=== PATIENT | male | born 1995 | race Caucasian/White ===

== ENCOUNTER 2017-05-18 15:38 | Emergency (ER) | payer BC, OTHER, SELFPAY ==
[2017-05-18] MEDS ORDERED: TORAdol 30 mg Injection IM ONE (16:27)
--- NOTE | 2017-05-18 16:31 | ERPHSYRPT ---
- History of Present Illness Time Seen by Provider: 05/18/17 16:24 Source: patient Exam Limitations: no limitations Patient Subjective Stated Complaint: pt here for right elbow pain since last night, pt states he slipped and fell and tried to catch self with right arm Triage Nursing Assessment: pt walked in, alert, resp easy, skin w/d pink. pt co pain to right elbow, strong radial pulse, has limtited movedment of arm Physician History: 21-year-old white male arrives with complaint of pain in his right elbow since last night. According to patient patient fell last night he is having pain in his right elbow worse with movement. Past medical history is negative. Past surgical history includes right hand surgery. Social history includes tobacco or alcohol use. Occurred: yesterday Method of Injury: fell Quality: constant Severity of Pain-Max: moderate Severity of Pain-Current: moderate Extremities Pain Location: elbow: right Modifying Factors: Improves With: movement Associated Symptoms: none Allergies/Adverse Reactions: No Known Drug Allergies Allergy (Verified 05/18/17 16:05) Home Medications: No Home Meds [No Home Meds] 1 [facility] 10/08/15 [History] Hx Tetanus, Diphtheria Vaccination/Date Given: Yes Hx Influenza Vaccination/Date Given: No Hx Pneumococcal Vaccination/Date Given: No Immunizations Up to Date: Yes - Review of Systems Constitutional: No Fever, No Chills Eyes: No Symptoms Ears, Nose, & Throat: No Symptoms Respiratory: No Cough, No Dyspnea Cardiac: No Chest Pain, No Edema, No Syncope Abdominal/Gastrointestinal: No Abdominal Pain, No Nausea, No Vomiting, No Diarrhea Genitourinary Symptoms: No Dysuria Musculoskeletal: Other (right elbow pain) Skin: No Rash Neurological: No Dizziness, No Focal Weakness, No Sensory Changes Psychological: No Symptoms Endocrine: No Symptoms All Other Systems: Reviewed and Negative - Past Medical History Pertinent Past Medical History: No - Past Surgical History Past Surgical History: Yes Musculoskeletal: Orthopedic Surgery Other Surgical History: right hand surgery - Social History Smoking Status: Current every day smoker How long have you smoked: yrs Exposure to second hand smoke: Yes Drug Use: marijuana, methamphetamines Patient Lives Alone: No - Nursing Vital Signs Nursing Vital Signs: Initial Vital Signs Temperature 98.4 F 05/18/17 15:58 Pulse Rate 75 05/18/17 15:58 Respiratory Rate 16 05/18/17 15:58 Blood Pressure 120/58 05/18/17 15:58 O2 Sat by Pulse Oximetry 96 05/18/17 15:58 Pain Scale Pain Intensity 7 - Physical Exam General Appearance: mild distress Eyes, Ears, Nose, Throat Exam: moist mucous membranes Neck Exam: non-tender, supple Cardiovascular/Respiratory Exam: chest non-tender, normal breath sounds, regular rate/rhythm, no respiratory distress Abdominal Exam: non-tender, No guarding Back Exam: normal inspection, No vertebral tenderness Shoulder Exam: normal inspection, non-tender, no evidence of injury, normal ROM Elbow/Forearm Exam: No normal inspection (pain with movement and palpation right posterior elbow, right radial ulnar pulses are intact 2/4 , good capillary refill right fingers full range of motion right fingers right wrist nontender) Wrist Exam: normal inspection, non-tender, no evidence of injury, normal ROM Hand Exam: normal inspection, non-tender, no evidence of injury, normal ROM Neuro/Tendon Exam: normal sensation, normal motor functions Mental Status Exam: alert, oriented x 3, cooperative Skin Exam: normal color, warm, dry SpO2 Interpretation: normal (96%) SpO2: 96 Oxygen Delivery: Room Air - Course Nursing assessment & vital signs reviewed: Yes - Radiology Exams Right Elbow X-ray Interpretation: Interpreted by me, Negative, No Fracture, No Subluxation Ordered Tests: Active Orders 24 hr Category Date Time Status Sling Application STAT Care 05/18/17 17:02 Active ELBOW (MINIMUM 3 VIEWS) Stat Exams 05/18/17 16:27 Taken Medication Summary Discontinued Medications Generic Name Dose Route Start Last Admin Trade Name Ariane PRN Reason Stop Dose Admin Ketorolac Tromethamine 60 mg 05/18/17 16:27 05/18/17 16:48 Toradol 30 Mg Injection IM 05/18/17 16:28 60 mg STAT ONE Administration Ketorolac Tromethamine Confirm 05/18/17 16:47 Toradol 30 Mg Injection Administered 05/18/17 16:48 Dose 60 mg .ROUTE .STK-MED ONE - Progress Progress: improved Progress Note: 05/18/17 17:03 21-year-old white male arrives with complaint of pain in right elbow worse with movement and palpation symptoms since last night. Patient states he fell onto an outstretched hand he has pain in the right elbow. X-ray of the right elbow negative fracture negative dislocation. We'll go ahead and place a sling on the patient's right arm. 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 - Departure Time of Disposition: 17:03 Departure Disposition: Home Clinical Impression: Right elbow pain Strain of right elbow Qualifiers: Encounter type: initial encounter Qualified Code(s): S56.911A - Strain of unspecified muscles, fascia and tendons at forearm level, right arm, initial encounter Condition: Fair Critical Care Time: No Referrals: LATOSHA NIXON MD [Primary Care Provider] - Additional Instructions: . Return home. Ice and elevate your right elbow 24-48 hours. Use sling right arm 48-72 hours, longer if pain persist. Milton 5/325 #12 one orally every 4-6 hours as needed for pain. Advil 2-3 tablets orally every 6 hours with food as needed for pain for up to 5 days. Follow-up with your family doctor if symptoms are worse, nowhere 48 hours, or persist longer than one week. Return for acute distress or for severe symptoms. Prescriptions: Hydrocodone/Acetaminophen [Milton 5-325 Tablet] 1 tab PO Q4-6HPRN PRN #12 tablet MDD 6 tablets PRN Reason: Pain
[2017-05-18] MEDS ORDERED: TORAdol 30 mg Injection ONE (16:47)
[2017-05-18 17:15] VITALS: BP 128/78; PULSE 78; O2SAT 98
--- NOTE | 2017-05-18 20:19 | XRAY ---
Indication: Pain following fall. Comparison: None 3 views of the right elbow obtained. No bony, articular, or soft tissue abnormalities.
== END 2017-05-18 17:15 | disposition home or self-care (01) ==
LOC: ED 15:38
DX: S56.911A Strain of unspecified muscles, fascia and tendons at forearm level, right arm, initial encounter (principal); M25.521 Pain in right elbow; W19.XXXA Unspecified fall, initial encounter
CPT/HCPCS: 73080; 96372; 99284; J1885

== ENCOUNTER 2018-12-20 14:14 | Emergency (ER) | payer BC ==
--- NOTE | 2018-12-20 15:26 | ERPHSYRPT ---
- History of Present Illness Source: patient Exam Limitations: no limitations Patient Subjective Stated Complaint: states "rolled" right ankle last night and today in having pain and swelling to ankle. Triage Nursing Assessment: ambulated to room per self. skin w/d, color normal. slight swelling noted to right ankle, good pedal pulse and good cap refill. Physician History: Pt is 23 y/o man that had his R ankle "rolled" under him, and developed pain. Pt is able to ambulate and his ROM is intact. He does have pain with palpation on the lateral calcaneal area. Method of Injury: twisted Occurred: just prior to arrival Quality: intermittent, aching Severity of Pain-Max: mild Severity of Pain-Current: mild Lower Extremities Pain: ankle: right (pain, especially with ambulastion) Modifying Factors: Improves With: pain medication, rest Allergies/Adverse Reactions: No Known Drug Allergies Allergy (Verified 12/20/18 14:32) Home Medications: No Home Meds [No Home Meds] 1 [facility] 10/08/15 [History] Hx Tetanus, Diphtheria Vaccination/Date Given: No Hx Influenza Vaccination/Date Given: Yes Hx Pneumococcal Vaccination/Date Given: No Immunizations Up to Date: No - Review of Systems Constitutional: No Fever, No Chills Musculoskeletal: Arthralgias (R ankle) Skin: No Rash Neurological: No Dizziness, No Focal Weakness, No Sensory Changes - Past Medical History Pertinent Past Medical History: No - Past Surgical History Past Surgical History: Yes Musculoskeletal: Orthopedic Surgery Other Surgical History: right hand surgery - Social History Smoking Status: Current every day smoker How long have you smoked: yrs Exposure to second hand smoke: Yes Drug Use: none Patient Lives Alone: Yes - Nursing Vital Signs Nursing Vital Signs: Initial Vital Signs Temperature 99.1 F 12/20/18 14:25 Pulse Rate 98 H 12/20/18 14:25 Respiratory Rate 16 12/20/18 14:25 Blood Pressure 139/85 12/20/18 14:25 O2 Sat by Pulse Oximetry 96 12/20/18 14:25 Pain Scale Pain Intensity 4 - Physical Exam General Appearance: alert Back Exam: normal inspection, No vertebral tenderness Ankle Exam: right ankle: pain, soft tissue tenderness, left ankle: non-tender, normal inspection, normal range of motion, no evidence of injury Neuro/Tendon Exam: normal sensation, normal motor functions SpO2: 96 - Radiology Exams Right Ankle X-ray Interpretation: Interpreted by me (No fracture of the R ankle) Ordered Tests: Active Orders 24 hr Category Date Time Status ANKLE (3 VIEWS) Stat Exams 12/20/18 15:00 Taken - Progress Progress: unchanged Will see patient in: office Counseled pt/family regarding: need for follow-up - Departure Departure Disposition: Home Clinical Impression: Right ankle sprain Condition: Stable Critical Care Time: No Referrals: LATOSHA NIXON MD [Primary Care Provider] - Additional Instructions: Ice and elevate the ankle. Use OTC meds for pain. Use brace, till pain is improved, and ankle is stable.
[2018-12-20 15:34] VITALS: BP 129/78; PULSE 80; O2SAT 98
--- NOTE | 2018-12-20 21:14 | XRAY ---
Indication: Pain following twisting injury. Comparison: June 20, 2011. 3 views of the right ankle demonstrates stable small well-circumscribed ossification between the lateral malleolus and talus. New tiny posterior heel spur. No acute bony, articular, or soft tissue abnormalities.
== END 2018-12-20 15:33 | disposition home or self-care (01) ==
LOC: ED 14:14
DX: S93.401A Sprain of unspecified ligament of right ankle, initial encounter (principal); M25.571 Pain in right ankle and joints of right foot; X50.0XXA Overexertion from strenuous movement or load, initial encounter
CPT/HCPCS: 73610; 99283

== ENCOUNTER 2023-03-29 05:26 | Observation (INO) | payer OTHER ==
--- NOTE | 2023-03-29 06:15 | ERPHSYRPT ---
- History of Present Illness Source: patient, police Exam Limitations: clinical condition, intoxication Patient Subjective Stated Complaint: pt states, "I just want to blow my brains out, I just don't want to live anymore". Triage Nursing Assessment: pt brought in by police. Pt went out drinking tonight and is intoxicated, pt called police and informed them that he wanted to kill himself. Pt is cooperative, rambling at times. Pt states, "I don't want to live anymore, I'm tired of it, I'm over it. I just want to blow my brains out". Pt informed me that he would plan to leave a note. Pt informed me that he has wanted to end his life for awhile now. Pt informed me that he has stood on the train track before and waited for a train to come, but someone tackled him at the last minute. Pt informed me that he has attempted to use a gun before and he has also tried to hang himself previously. Pt had a bad break up about 2 weeks ago, but informed me thats not the only reason for this tonight, he hasn't wanted to live for years. Pt drinks every weekend but for the last 2 weeks has been drinking daily after work, drinking about a 1/2 bottle of crown. Timing/Duration: today Severity of Symptoms-Max: moderate Severity of Symptoms-Current: moderate Context related to: other (Nonspecific) Suicidal thoughts: specific plan (Shooting himself) Associated Symptoms: depressed, frustrated Previous symptoms: same symptoms as today, no recent treatment Hx Tetanus, Diphtheria Vaccination/Date Given: Yes Hx Influenza Vaccination/Date Given: No Hx Pneumococcal Vaccination/Date Given: No Immunizations Up to Date: No <PRADEEP DUENAS - Last Filed: 03/29/23 06:40> <ISAIAH PAZ - Last Filed: 03/29/23 07:46> - History of Present Illness Time Seen by Provider: 03/29/23 05:50 Physician History: This is a 27-year-old white male patient who called law enforcement telling them that he wanted to kill himself. Law enforcement brought the patient into the hospital emergency department. Patient states that he wants to "blow my brains out. I do not want to live anymore". Patient states that he has wanted to kill himself for some time. He is attempted in the past to kill himself in [address] diff e[address] per his report. The first way was he was standing on a train track when at the last minute someone tackled him out of the way. He also got a gun and put it to his head in the past but did not pull the trigger. He also attempted to hang himself. 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 This morning his plan was to shoot himself. Patient does not have any hallucinations. He has no homicidal ideation. Interestingly, the patient wanted to make sure that we called his workplace because he does not want to lose his job. (PRADEEP DUENAS) Allergies/Adverse Reactions: No Known Drug Allergies Allergy (Verified 03/29/23 05:50) Home Medications: No Home Meds [No Home Meds] [address] [facility] 10/08/15 [History] Travel Risk - International Travel Have you traveled outside of the country in past 3 weeks: No - Coronavirus Screening Are you exhibiting any of the following symptoms?: No Close contact with a COVID-19 positive Pt in past 14-21 Days: No - Vaccine Status Have you recieved a Covid-19 vaccination: No <PRADEEP DUENAS - Last Filed: 03/29/23 06:40> - Past Medical History Pertinent Past Medical History: Yes Psycho-Social History: Depression - Past Surgical History Past Surgical History: Yes Musculoskeletal: Orthopedic Surgery Other Surgical History: right hand surgery - Social History Smoking Status: Former smoker How long have you smoked: yrs Exposure to second hand smoke: Yes Drug Use: none Patient Lives Alone: No <PRADEEP DUENAS - Last Filed: 03/29/23 06:40> - Review of Systems Constitutional: No Symptoms Eyes: No Symptoms Ears, Nose, & Throat: No Symptoms Respiratory: No Symptoms Cardiac: No Symptoms Abdominal/Gastrointestinal: No Symptoms Genitourinary Symptoms: No Symptoms Musculoskeletal: No Symptoms Skin: No Symptoms Neurological: No Symptoms Psychological: Alcohol Abuse, Depression, Suicidal Ideations, No Hallucinations Endocrine: No Symptoms Hematologic/Lymphatic: No Symptoms Immunological/Allergic: No Symptoms All Other Systems: Reviewed and Negative <PRADEEP DUENAS - Last Filed: 03/29/23 06:40> - Physical Exam General Appearance: no apparent distress, alert, other (Intoxicated) Eyes, Ears, Nose, Throat Exam: normal ENT inspection, moist mucous membranes Neck Exam: normal inspection, non-tender, supple, full range of motion Respiratory Exam: normal breath sounds, lungs clear, airway intact, No chest tenderness, No respiratory distress Cardiovascular Exam: regular rate/rhythm, normal heart sounds, normal peripheral pulses Gastrointestinal/Abdominal Exam: soft, normal bowel sounds, No tenderness Extremities Exam: normal inspection, normal range of motion, No evidence of injury Current Suicidality: has suicide plan (Patient plans to shoot himself) Neurological Exam: alert (But intoxicated), 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, oriented x 3, depressed affect Appearance: impaired insight (Secondary to intoxication) Behavior/Eye Contact/Speech: cooperative, intoxicated appearance Thoughts/Hallucinations: no apparent hallucination Skin Exam: normal color, warm, dry SpO2 Interpretation: borderline oxygenation SpO2: 95 O2 Delivery: Room Air <PRADEEP DUENAS - Last Filed: 03/29/23 06:40> - Nursing Vital Signs Nursing Vital Signs: Initial Vital Signs Temperature 99.4 F 03/29/23 05:30 Pulse Rate 82 03/29/23 05:30 Respiratory Rate 16 03/29/23 05:30 Blood Pressure 124/75 03/29/23 05:30 O2 Sat by Pulse Oximetry 96 03/29/23 05:30 Pain Scale Pain Intensity 0 - Course Nursing assessment & vital signs reviewed: Yes <PRADEEP DUENAS - Last Filed: 03/29/23 06:40> Ordered Tests: Active Orders 24 hr Category Date Time Status EKG-ER Only STAT Care 03/29/23 06:16 Active ACETAMINOPHEN Stat Lab 03/29/23 06:24 Completed CBC W DIFF Stat Lab 03/29/23 06:24 Completed CMP Stat Lab 03/29/23 06:24 Completed ETHYL ALCOHOL Stat Lab 03/29/23 06:24 Completed SALICYLATE Stat Lab 03/29/23 06:24 Completed UA W/RFX UR CULTURE Stat Lab 03/29/23 06:40 Completed Urine Triage Profile Stat Lab 03/29/23 06:40 Received Transfer Order Routine Transfer 03/29/23 Ordered Lab/Rad Data: Laboratory Result Diagrams 03/29/23 06:24 03/29/23 06:24 Laboratory Results 03/29/23 03/29/23 03/29/23 Range/Units Unknown 06:40 06:24 WBC (4.0-10.5) x10^3/uL RBC (4.1-5.6) x10^6/uL Hgb (12.5-18.0) g/dL Hct (42-50) % MCV (78-100) fL MCH (26-32) pg MCHC (32-36) g/dL RDW (11.5-14.0) % Plt Count (150-450) x10^3/uL MPV (7.5-11.0) fL Gran % (36.0-66.0) % Immature Gran % (Auto) (0.00-0.4) % Nucleat RBC Rel Count (0.00-0.1) % Eos # (Auto) (0-0.5) x10^3/uL Immature Gran # (Auto) (0.00-0.03) x10^3u/L Absolute Lymphs (auto) (1.0-4.6) x10^3/uL Absolute Monos (auto) (0.0-1.3) x10^3/uL Absolute Nucleated RBC (0.00-0.01) x10^3u/L Lymphocytes % (24.0-44.0) % Monocytes % (0.0-12.0) % Eosinophils % (0.00-5.0) % Basophils % (0.0-0.4) % Absolute Granulocytes (1.4-6.9) x10^3/uL Basophils # (0-0.4) x10^3/uL Sodium 147 H (137-145) mmol/L Potassium 4.1 (3.5-5.1) mmol/L Chloride 111 H (98-107) mmol/L Carbon Dioxide 25 (22-30) mmol/L Anion Gap 14.5 (5-15) MEQ/L BUN 18 (9-20) mg/dL Creatinine 0.99 (0.66-1.25) mg/dL Estimated GFR > 60.0 ML/MIN Glucose 107 H (74-106) mg/dL Calcium 8.6 (8.4-10.2) mg/dL Total Bilirubin 0.20 (0.2-1.3) mg/dL AST 28 (17-59) U/L ALT 31 (0-50) U/L Alkaline Phosphatase 60 (38-126) U/L Serum Total Protein 7.0 (6.3-8.2) g/dL Albumin 4.4 (3.5-5.0) g/dL Urine Color Yellow (Yellow) Urine Appearance Clear (Clear) Urine pH 5.5 (4.6-8.0) Ur Specific [place] 1.015 (1.005-1.030) Urine Protein Trace A (Negative) Urine Glucose (UA) Negative (Negative) mg/dL Urine Ketones Negative (Negative) Urine Blood Negative (Negative) Urine Nitrite Negative (Negative) Urine Bilirubin Negative (Negative) Urine Urobilinogen 0.2 (0.2) mg/dL Ur Leukocyte Esterase Negative (Negative) U Hyaline Cast (Auto) NONE SEEN (0-2) /LPF Urine Microscopic RBC 0-2 (0-5) /HPF Urine Microscopic WBC 0-2 (0-5) /HPF Ur Epithelial Cells None Seen (None Seen) /HPF Urine Bacteria None Seen (None Seen) /HPF Urine Culture Reflexed NO (NO) Salicylates < 1.0 L (2-20) mg/dL Acetaminophen < 10 L (10-30) ug/ml Ethyl Alcohol 234 H (0-10) mg/dL Influenza Type A Ag NEGATIVE (NEGATIVE) Influenza Type B Ag NEGATIVE (NEGATIVE) RSV (PCR) NEGATIVE (NEGATIVE) SARS-CoV-2 (PCR) NEGATIVE (NEGATIVE) 03/29/23 Range/Units 06:24 WBC 7.0 (4.0-10.5) x10^3/uL RBC 5.08 (4.1-5.6) x10^6/uL Hgb 15.0 (12.5-18.0) g/dL Hct 45.2 (42-50) % MCV 89.0 (78-100) fL MCH 29.5 (26-32) pg MCHC 33.2 (32-36) g/dL RDW 13.3 (11.5-14.0) % Plt Count 232 (150-450) x10^3/uL MPV 9.8 (7.5-11.0) fL Gran % 46.8 (36.0-66.0) % Immature Gran % (Auto) 0.4 (0.00-0.4) % Nucleat RBC Rel Count 0.0 (0.00-0.1) % Eos # (Auto) 0.50 (0-0.5) x10^3/uL Immature Gran # (Auto) 0.03 (0.00-0.03) x10^3u/L Absolute Lymphs (auto) 2.44 (1.0-4.6) x10^3/uL Absolute Monos (auto) 0.69 (0.0-1.3) x10^3/uL Absolute Nucleated RBC 0.00 (0.00-0.01) x10^3u/L Lymphocytes % 35.1 (24.0-44.0) % Monocytes % 9.9 (0.0-12.0) % Eosinophils % 7.2 H (0.00-5.0) % Basophils % 0.6 (0.0-0.4) % Absolute Granulocytes 3.26 (1.4-6.9) x10^3/uL Basophils # 0.04 (0-0.4) x10^3/uL Sodium (137-145) mmol/L Potassium (3.5-5.1) mmol/L Chloride (98-107) mmol/L Carbon Dioxide (22-30) mmol/L Anion Gap (5-15) MEQ/L BUN (9-20) mg/dL Creatinine (0.66-1.25) mg/dL Estimated GFR ML/MIN Glucose (74-106) mg/dL Calcium (8.4-10.2) mg/dL Total Bilirubin (0.2-1.3) mg/dL AST (17-59) U/L ALT (0-50) U/L Alkaline Phosphatase (38-126) U/L Serum Total Protein (6.3-8.2) g/dL Albumin (3.5-5.0) g/dL Urine Color (Yellow) Urine Appearance (Clear) Urine pH (4.6-8.0) Ur Specific [place] (1.005-1.030) Urine Protein (Negative) Urine Glucose (UA) (Negative) mg/dL Urine Ketones (Negative) Urine Blood (Negative) Urine Nitrite (Negative) Urine Bilirubin (Negative) Urine Urobilinogen (0.2) mg/dL Ur Leukocyte Esterase (Negative) U Hyaline Cast (Auto) (0-2) /LPF Urine Microscopic RBC (0-5) /HPF Urine Microscopic WBC (0-5) /HPF Ur Epithelial Cells (None Seen) /HPF Urine Bacteria (None Seen) /HPF Urine Culture Reflexed (NO) Salicylates (2-20) mg/dL Acetaminophen (10-30) ug/ml Ethyl Alcohol (0-10) mg/dL Influenza Type A Ag (NEGATIVE) Influenza Type B Ag (NEGATIVE) RSV (PCR) (NEGATIVE) SARS-CoV-2 (PCR) (NEGATIVE) <PRADEEP DUENAS - Last Filed: 03/29/23 06:40> - Progress Discussed with : Other Will see patient in: hospital (observation) Counseled pt/family regarding: drug and/or alcohol abuse, lab results, diagnosis, need for follow-up <ISAIAH PAZ - Last Filed: 03/29/23 07:46> - Progress Progress Note: 03/29/23 06:14 This patient's medical issue is 1 of moderate to high complexity. Level c omplexity in the work-up performed is based on review of the patient's past medical history, review of the patient's medication list, review of the patient's drug allergy list, history present illness and physical findings on examination. This patient's work-up includes twelve-lead EKG, CBC, CMP, a cetaminophen level, salicylate level, alcohol level, urinalysis and urine drug screen. We will then contact mental health services for evaluation for final disposition. However, if the alcohol level is above legal limit, they may ask us to wait until the blood alcohol level is in the normal range 03/29/23 06:40 Care of this patient is being transferred to Dr. Paz at shift change. He has been informed of the patient's history, presenting complaint and work-up results pending. He will make final disposition of this patient. (PRADEEP DUENAS) Medical Desision Making - Risk of complications The pt has a high risk of morbidity or mortality based on: Decision regarding hospitilization or escalation of hosp level of care <PRADEEP DUENAS - Last Filed: 03/29/23 06:40> - Risk of complications The pt has a high risk of morbidity or mortality based on: Decision regarding hospitilization or escalation of hosp level of care <ISAIAH PAZ - Last Filed: 03/29/23 07:46> - Departure Departure Disposition: Transfer Critical Care Time: No <PRADEEP DUENAS - Last Filed: 03/29/23 06:40> - Departure Departure Disposition: Observation Critical Care Time: Yes Critical Care Time(excluding separately billable procedures): Critical 30-74 mins <ISAIAH PAZ - Last Filed: 03/29/23 07:46> - Departure Clinical Impression: Suicidal ideation Alcohol intoxication Qualifiers: Complication of substance-induced condition: uncomplicated Qualified Code(s): F10.920 - Alcohol use, unspecified with intoxication, uncomplicated Condition: Stable Referrals: MOUNIKA GANNON, OPHTHALMOLOGIST RETINA SPECIALIST [Primary Care Provider] - Follow up/PCP as directed
[2023-03-29 06:28] LABS: Absolute Neutrophil Ct (ANC) 3.26 x10^3/uL (1.4-6.9); BASOPHIL % 0.6 % (0.0-0.4); Basophil (Absolute #) 0.04 x10^3/uL (0-0.4); Eosinophil % 7.2 % (0.00-5.0); Hematocrit 45.2 % (42-50); IMMATURE GRAN # 0.03 x10^3u/L (0.00-0.03); IMMATURE GRAN % 0.4 % (0.00-0.4); Lymphocyte (Absolute #) 2.44 x10^3/uL (1.0-4.6); Lymphocytes % 35.1 % (24.0-44.0); Mean Corpuscular Hemoglobin 29.5 pg (26-32); Mean Corpuscular Hgb Concent. 33.2 g/dL (32-36); Mean Platelet Volume 9.8 fL (7.5-11.0); Monocyte (Absolute #) 0.69 x10^3/uL (0.0-1.3); Monocytes % 9.9 % (0.0-12.0); Neutrophil % 46.8 % (36.0-66.0); Platelet Count 232 x10^3/uL (150-450); Red Blood Count 5.08 x10^6/uL (4.1-5.6); Red Cell Distribution Width 13.3 % (11.5-14.0)
[2023-03-29 06:51] LABS: ACETAMINOPHEN < 10 ug/ml (10-30); ALBUMIN 4.4 g/dL (3.5-5.0); ALKALINE PHOSPHATASE 60 U/L (38-126); ANION GAP 14.5 MEQ/L (5-15); BLOOD UREA NITROGEN 18 mg/dL (9-20); CHLORIDE 111 mmol/L (98-107); Calcium 8.6 mg/dL (8.4-10.2); Carbon Dioxide 25 mmol/L (22-30); Creatinine 1 0.99 mg/dL (0.66-1.25); EST GLOMERULAR FILTRATION RATE > 60.0 ML/MIN; ETHYL ALCOHOL 234 mg/dL (0-10); Glucose 107 mg/dL (74-106); Potassium 4.1 mmol/L (3.5-5.1); SALICYLATE < 1.0 mg/dL (2-20); SGOT/AST 28 U/L (17-59); SGPT/ALT 31 U/L (0-50); SODIUM 147 mmol/L (137-145)
[2023-03-29 06:54] LABS: Appearance Clear (Clear); Bacteria None Seen /HPF (None Seen); Bilirubin Negative (Negative); Blood Negative (Negative); Epithelial Cells None Seen /HPF (None Seen); Glucose, Urine Negative (Negative); Hyaline Casts NONE SEEN /LPF (0-2); Ketones Negative (Negative); Leukocyte Esterase Negative (Negative); Nitrite Negative (Negative); Ph 5.5 (4.6-8.0); Protein,Urine Dip Trace (Negative); RBC 0-2 /HPF (0-5); Specific Gravity 1.015 (1.005-1.030); Urobilinogen 0.2 mg/dL (0.2); WBC 0-2 /HPF (0-5)
[2023-03-29 06:59] LABS: ADD URINE CULTURE? NO (NO)
[2023-03-29 07:03] LABS: INFLUENZA A NEGATIVE (NEGATIVE); INFLUENZA B NEGATIVE (NEGATIVE); RESPIRATORY SYNCTIAL VIRUS NEGATIVE (NEGATIVE); SARS-CoV-2 Xpert Express NEGATIVE (NEGATIVE)
[2023-03-29 07:22] LABS: Amphetamine,Urine NEGATIVE (NEGATIVE); Barbiturate,Urine NEGATIVE (NEGATIVE); Benzodiazepine,Urine NEGATIVE (NEGATIVE); Cocaine,Urine NEGATIVE (NEGATIVE); Methadone,Urine NEGATIVE (NEGATIVE); Opiate,Urine NEGATIVE (NEGATIVE); PCP,Urine NEGATIVE (NEGATIVE); THC,Urine NEGATIVE (NEGATIVE)
--- NOTE | 2023-03-29 09:10 | PCM.HP ---
History of Present Illness - Chief Complaint Chief Complaint: alcohol intoxication, suicidal ideation Date: 03/29/23 History of Present Illness: is a 27 year old male with no pmhx presents to the hospital for suicidal ideation. Patient is intoxicated. Endorses every day thoughts of suicide. States he thinks about it all day long. Reports that his triggers for these thoughts are that "I just don't like myself and I want to blow my brains out." Patient tearful during interview. He states he has had many plans to end his life but he does not want to hurt the people who him. He does have access to a gun at home, states this is the method he would use, and leave a note. When asked about previous attempts he mentions that he tried to overdose on pills but it did not work. He states that he feels depressed and anxious but has never sought help or treatment and would like to at this time. He does consume about half of a fifth of crown daily which started several weeks ago, which he uses to help him sleep. No homicidal ideations, no auditory or visual hallucinations. He denies illicit drug use. Denies fever,cough, sob, cp, abdominal pain, MUÑOZ, dizziness, N/V/D. In ER vitals and labs unremarkable with the exception of sodium at 147 and ethyl alcohol level at 234. - Review of Systems Constitutional: No Symptoms Eyes: No Symptoms Ears, Nose, & Throat: No Symptoms Respiratory: No Symptoms Cardiac: No Symptoms Abdominal/Gastrointestinal: No Symptoms Genitourinary Symptoms: No Symptoms Musculoskeletal: No Symptoms Skin: No Symptoms Neurological: No Symptoms Psychological: Alcohol Abuse, Anxiety, Depression, Suicidal Ideations Endocrine: No Symptoms Hematologic/Lymphatic: No Symptoms Immunological/Allergic: No Symptoms Medications & Allergies Home Medications: Home Medication List No Home Meds [No Home Meds] 1 ea UD 10/08/15 [History Confirmed 03/29/23] Allergies/Adverse Reactions: Allergies Allergy/AdvReac Type Severity Reaction Status Date / Time No Known Drug Allergies Allergy Verified 03/29/23 05:50 - Past Medical History Past Medical History: Yes Neurological History: No Pertinent History ENT History: No Pertinent History Cardiac History: No Pertinent History Respiratory History: No Pertinent History Endocrine Medical History: No Pertinent History Musculoskelatal History: No Pertinent History GI Medical History: No Pertinent History History: No Pertinent History Pyscho-Social History: Depression Male Reproductive Disorders: No Pertinent History - Past Surgical History Past Surgical History: Yes Neuro Surgical History: No Pertinent History Cardiac History: No Pertinent History Respiratory Surgery: No Pertinent History GI Surgical History: No Pertinent History Genitourinary Surgical Hx: No Pertinent History Musculskeletal Surgical Hx: Orthopedic Surgery Male Surgical History: No Pertinent History Other Surgical History: right hand surgery - Social History Smoking Status: Former smoker How long have you smoked: yrs Exposure to second hand smoke: Yes Alcohol: Weekly Drug Use: none - Physical Exam Vital Signs: Vital Signs - 24 hr Temp Pulse Resp BP Pulse Ox 03/29/23 08:21 98.2 F 90 18 127/70 96 03/29/23 08:01 90 18 108/71 96 03/29/23 06:41 95 03/29/23 06:00 82 18 131/74 95 03/29/23 05:30 99.4 F 82 16 124/75 96 General Appearance: no apparent distress Neurologic Exam: alert, oriented x 3, intoxicated appearance Eye Exam: PERRL/EOMI Ears, Nose, Throat Exam: normal ENT inspection Neck Exam: normal inspection Respiratory Exam: normal breath sounds, lungs clear Cardiovascular Exam: regular rate/rhythm, normal heart sounds Gastrointestinal/Abdomen Exam: soft, normal bowel sounds Back Exam: normal inspection Extremity Exam: normal inspection Skin Exam: normal color Results - Labs Lab/Micro Results: Lab Results-Last 24 Hours 03/29/23 03/29/23 03/29/23 Range/Units 06:24 06:24 06:40 WBC 7.0 (4.0-10.5) x10^3/uL RBC 5.08 (4.1-5.6) x10^6/uL Hgb 15.0 (12.5-18.0) g/dL Hct 45.2 (42-50) % MCV 89.0 (78-100) fL MCH 29.5 (26-32) pg MCHC 33.2 (32-36) g/dL RDW 13.3 (11.5-14.0) % Plt Count 232 (150-450) x10^3/uL MPV 9.8 (7.5-11.0) fL Gran % 46.8 (36.0-66.0) % Immature Gran % (Auto) 0.4 (0.00-0.4) % Nucleat RBC Rel Count 0.0 (0.00-0.1) % Eos # (Auto) 0.50 (0-0.5) x10^3/uL Immature Gran # (Auto) 0.03 (0.00-0.03) x10^3u/L Absolute Lymphs (auto) 2.44 (1.0-4.6) x10^3/uL Absolute Monos (auto) 0.69 (0.0-1.3) x10^3/uL Absolute Nucleated RBC 0.00 (0.00-0.01) x10^3u/L Lymphocytes % 35.1 (24.0-44.0) % Monocytes % 9.9 (0.0-12.0) % Eosinophils % 7.2 H (0.00-5.0) % Basophils % 0.6 (0.0-0.4) % Absolute Granulocytes 3.26 (1.4-6.9) x10^3/uL Basophils # 0.04 (0-0.4) x10^3/uL Sodium 147 H (137-145) mmol/L Potassium 4.1 (3.5-5.1) mmol/L Chloride 111 H (98-107) mmol/L Carbon Dioxide 25 (22-30) mmol/L Anion Gap 14.5 (5-15) MEQ/L BUN 18 (9-20) mg/dL Creatinine 0.99 (0.66-1.25) mg/dL Estimated GFR > 60.0 ML/MIN Glucose 107 H (74-106) mg/dL Calcium 8.6 (8.4-10.2) mg/dL Total Bilirubin 0.20 (0.2-1.3) mg/dL AST 28 (17-59) U/L ALT 31 (0-50) U/L Alkaline Phosphatase 60 (38-126) U/L Serum Total Protein 7.0 (6.3-8.2) g/dL Albumin 4.4 (3.5-5.0) g/dL Urine Color Yellow (Yellow) Urine Appearance Clear (Clear) Urine pH 5.5 (4.6-8.0) Ur Specific [place] 1.015 (1.005-1.030) Urine Protein Trace A (Negative) Urine Glucose (UA) Negative (Negative) mg/dL Urine Ketones Negative (Negative) Urine Blood Negative (Negative) Urine Nitrite Negative (Negative) Urine Bilirubin Negative (Negative) Urine Urobilinogen 0.2 (0.2) mg/dL Ur Leukocyte Esterase Negative (Negative) U Hyaline Cast (Auto) NONE SEEN (0-2) /LPF Urine Microscopic RBC 0-2 (0-5) /HPF Urine Microscopic WBC 0-2 (0-5) /HPF Ur Epithelial Cells None Seen (None Seen) /HPF Urine Bacteria None Seen (None Seen) /HPF Urine Culture Reflexed NO (NO) Salicylates < 1.0 L (2-20) mg/dL Urine Opiates Level (NEGATIVE) Ur Methadone (NEGATIVE) Acetaminophen < 10 L (10-30) ug/ml Urine Barbiturates (NEGATIVE) Ur Phencyclidine (PCP) (NEGATIVE) Urine Amphetamine (NEGATIVE) U Benzodiazepine Level (NEGATIVE) Urine Cocaine (NEGATIVE) Urine Marijuana (THC) (NEGATIVE) Ethyl Alcohol 234 H (0-10) mg/dL Influenza Type A Ag (NEGATIVE) Influenza Type B Ag (NEGATIVE) RSV (PCR) (NEGATIVE) SARS-CoV-2 (PCR) (NEGATIVE) 03/29/23 03/29/23 Range/Units 06:40 Unknown WBC (4.0-10.5) x10^3/uL RBC (4.1-5.6) x10^6/uL Hgb (12.5-18.0) g/dL Hct (42-50) % MCV (78-100) fL MCH (26-32) pg MCHC (32-36) g/dL RDW (11.5-14.0) % Plt Count (150-450) x10^3/uL MPV (7.5-11.0) fL Gran % (36.0-66.0) % Immature Gran % (Auto) (0.00-0.4) % Nucleat RBC Rel Count (0.00-0.1) % Eos # (Auto) (0-0.5) x10^3/uL Immature Gran # (Auto) (0.00-0.03) x10^3u/L Absolute Lymphs (auto) (1.0-4.6) x10^3/uL Absolute Monos (auto) (0.0-1.3) x10^3/uL Absolute Nucleated RBC (0.00-0.01) x10^3u/L Lymphocytes % (24.0-44.0) % Monocytes % (0.0-12.0) % Eosinophils % (0.00-5.0) % Basophils % (0.0-0.4) % Absolute Granulocytes (1.4-6.9) x10^3/uL Basophils # (0-0.4) x10^3/uL Sodium (137-145) mmol/L Potassium (3.5-5.1) mmol/L Chloride (98-107) mmol/L Carbon Dioxide (22-30) mmol/L Anion Gap (5-15) MEQ/L BUN (9-20) mg/dL Creatinine (0.66-1.25) mg/dL Estimated GFR ML/MIN Glucose (74-106) mg/dL Calcium (8.4-10.2) mg/dL Total Bilirubin (0.2-1.3) mg/dL AST (17-59) U/L ALT (0-50) U/L Alkaline Phosphatase (38-126) U/L Serum Total Protein (6.3-8.2) g/dL Albumin (3.5-5.0) g/dL Urine Color (Yellow) Urine Appearance (Clear) Urine pH (4.6-8.0) Ur Specific [place] (1.005-1.030) Urine Protein (Negative) Urine Glucose (UA) (Negative) mg/dL Urine Ketones (Negative) Urine Blood (Negative) Urine Nitrite (Negative) Urine Bilirubin (Negative) Urine Urobilinogen (0.2) mg/dL Ur Leukocyte Esterase (Negative) U Hyaline Cast (Auto) (0-2) /LPF Urine Microscopic RBC (0-5) /HPF Urine Microscopic WBC (0-5) /HPF Ur Epithelial Cells (None Seen) /HPF Urine Bacteria (None Seen) /HPF Urine Culture Reflexed (NO) Salicylates (2-20) mg/dL Urine Opiates Level NEGATIVE (NEGATIVE) Ur Methadone NEGATIVE (NEGATIVE) Acetaminophen (10-30) ug/ml Urine Barbiturates NEGATIVE (NEGATIVE) Ur Phencyclidine (PCP) NEGATIVE (NEGATIVE) Urine Amphetamine NEGATIVE (NEGATIVE) U Benzodiazepine Level NEGATIVE (NEGATIVE) Urine Cocaine NEGATIVE (NEGATIVE) Urine Marijuana (THC) NEGATIVE (NEGATIVE) Ethyl Alcohol (0-10) mg/dL Influenza Type A Ag NEGATIVE (NEGATIVE) Influenza Type B Ag NEGATIVE (NEGATIVE) RSV (PCR) NEGATIVE (NEGATIVE) SARS-CoV-2 (PCR) NEGATIVE (NEGATIVE) Assessment/Plan (1) Suicidal ideation Current Visit: Yes Status: Acute Assessment & Plan: - consult -sitter -safe tray Code(s): R45.851 - SUICIDAL IDEATIONS (2) Depression Current Visit: Yes Status: Acute Assessment & Plan: -see above, possible IP transfer Code(s): F32.A - DEPRESSION, UNSPECIFIED (3) Anxiety Current Visit: Yes Status: Acute Assessment & Plan: -see above Code(s): F41.9 - ANXIETY DISORDER, UNSPECIFIED (4) Alcohol intoxication Current Visit: Yes Status: Acute Qualifiers: Complication of substance-induced condition: uncomplicated Qualified Code(s): F10.920 - Alcohol use, unspecified with intoxication, uncomplicated Assessment & Plan: -alcohol level 180<234, will start IVF -No need for CIWA today due to intoxication, will start tomorrow
[2023-03-29] MEDS ORDERED: Sodium Chloride 0.9% 1000 ML 1,000 ML IV SCH (12:00)
[2023-03-30] MEDS ORDERED: Ativan 2 MG/1 ML VIAL IV PRN (05:30)
--- NOTE | 2023-03-30 05:30 | PCM.NOTE ---
Date and Time: 03/30/23527 Subjective Assessment: is a 27 year old male with no pmhx presents to the hospital for suicidal ideation. Patient is intoxicated. Endorses every day thoughts of suicide. States he thinks about it all day long. Reports that his triggers for these thoughts are that "I just don't like myself and I want to blow my brains o ut." Patient tearful during interview. He states he has had many plans to end his life but he does not want to hurt the people who him. He does have access to a gun at home, states this is the method he would use, and leave a note. When asked about previous attempts he mentions that he tried to overdose on pills but it did not work. He states that he feels depressed and anxious but has never sought help or treatment and would like to at this time. He does consume about half of a fifth of crown daily which started several weeks ago, which he uses to help him sleep. No homicidal ideations, no auditory or visual hallucinations. He denies illicit drug use. Denies fever,cough, sob, cp, abdominal pain, MUÑOZ, dizziness, N/V/D. Tele-psych consult pending OBJECTIVE DATA Vital Signs: Vital Signs - 24 hr Temp Pulse Resp BP Pulse Ox 03/30/23 04:00 97.3 F 70 18 120/76 98 03/30/23 00:00 18 03/29/23 19:46 97.5 F 81 18 122/64 97 03/29/23 16:00 98.0 F 87 18 131/56 96 03/29/23 12:00 98.7 F 95 H 18 124/65 97 03/29/23 08:21 98.2 F 90 18 127/70 96 03/29/23 08:01 90 18 108/71 96 03/29/23 06:41 95 03/29/23 06:00 82 18 131/74 95 03/29/23 05:30 99.4 F 82 16 124/75 96 Pain Assessment - Last Documented Pain Intensity 0 Intake and Output: Intake & Output 03/27/23 03/28/23 03/29/23 03/30/23 11:59 11:59 11:59 11:59 Intake Total 60 120 Balance 60 120 Weight 83.9 kg Lab Results: Lab Results-Last 24 Hours 03/29/23 03/29/23 03/29/23 Range/Units 06:24 06:24 06:40 WBC 7.0 (4.0-10.5) x10^3/uL RBC 5.08 (4.1-5.6) x10^6/uL Hgb 15.0 (12.5-18.0) g/dL Hct 45.2 (42-50) % MCV 89.0 (78-100) fL MCH 29.5 (26-32) pg MCHC 33.2 (32-36) g/dL RDW 13.3 (11.5-14.0) % Plt Count 232 (150-450) x10^3/uL MPV 9.8 (7.5-11.0) fL Gran % 46.8 (36.0-66.0) % Immature Gran % (Auto) 0.4 (0.00-0.4) % Nucleat RBC Rel Count 0.0 (0.00-0.1) % Eos # (Auto) 0.50 (0-0.5) x10^3/uL Immature Gran # (Auto) 0.03 (0.00-0.03) x10^3u/L Absolute Lymphs (auto) 2.44 (1.0-4.6) x10^3/uL Absolute Monos (auto) 0.69 (0.0-1.3) x10^3/uL Absolute Nucleated RBC 0.00 (0.00-0.01) x10^3u/L Lymphocytes % 35.1 (24.0-44.0) % Monocytes % 9.9 (0.0-12.0) % Eosinophils % 7.2 H (0.00-5.0) % Basophils % 0.6 (0.0-0.4) % Absolute Granulocytes 3.26 (1.4-6.9) x10^3/uL Basophils # 0.04 (0-0.4) x10^3/uL Sodium 147 H (137-145) mmol/L Potassium 4.1 (3.5-5.1) mmol/L Chloride 111 H (98-107) mmol/L Carbon Dioxide 25 (22-30) mmol/L Anion Gap 14.5 (5-15) MEQ/L BUN 18 (9-20) mg/dL Creatinine 0.99 (0.66-1.25) mg/dL Estimated GFR > 60.0 ML/MIN Glucose 107 H (74-106) mg/dL Calcium 8.6 (8.4-10.2) mg/dL Total Bilirubin 0.20 (0.2-1.3) mg/dL AST 28 (17-59) U/L ALT 31 (0-50) U/L Alkaline Phosphatase 60 (38-126) U/L Serum Total Protein 7.0 (6.3-8.2) g/dL Albumin 4.4 (3.5-5.0) g/dL Urine Color Yellow (Yellow) Urine Appearance Clear (Clear) Urine pH 5.5 (4.6-8.0) Ur Specific [place] 1.015 (1.005-1.030) Urine Protein Trace A (Negative) Urine Glucose (UA) Negative (Negative) mg/dL Urine Ketones Negative (Negative) Urine Blood Negative (Negative) Urine Nitrite Negative (Negative) Urine Bilirubin Negative (Negative) Urine Urobilinogen 0.2 (0.2) mg/dL Ur Leukocyte Esterase Negative (Negative) U Hyaline Cast (Auto) NONE SEEN (0-2) /LPF Urine Microscopic RBC 0-2 (0-5) /HPF Urine Microscopic WBC 0-2 (0-5) /HPF Ur Epithelial Cells None Seen (None Seen) /HPF Urine Bacteria None Seen (None Seen) /HPF Urine Culture Reflexed NO (NO) Salicylates < 1.0 L (2-20) mg/dL Urine Opiates Level (NEGATIVE) Ur Methadone (NEGATIVE) Acetaminophen < 10 L (10-30) ug/ml Urine Barbiturates (NEGATIVE) Ur Phencyclidine (PCP) (NEGATIVE) Urine Amphetamine (NEGATIVE) U Benzodiazepine Level (NEGATIVE) Urine Cocaine (NEGATIVE) Urine Marijuana (THC) (NEGATIVE) Ethyl Alcohol 234 H (0-10) mg/dL Influenza Type A Ag (NEGATIVE) Influenza Type B Ag (NEGATIVE) RSV (PCR) (NEGATIVE) SARS-CoV-2 (PCR) (NEGATIVE) 03/29/23 03/29/23 03/29/23 Range/Units 06:40 10:07 16:40 WBC (4.0-10.5) x10^3/uL RBC (4.1-5.6) x10^6/uL Hgb (12.5-18.0) g/dL Hct (42-50) % MCV (78-100) fL MCH (26-32) pg MCHC (32-36) g/dL RDW (11.5-14.0) % Plt Count (150-450) x10^3/uL MPV (7.5-11.0) fL Gran % (36.0-66.0) % Immature Gran % (Auto) (0.00-0.4) % Nucleat RBC Rel Count (0.00-0.1) % Eos # (Auto) (0-0.5) x10^3/uL Immature Gran # (Auto) (0.00-0.03) x10^3u/L Absolute Lymphs (auto) (1.0-4.6) x10^3/uL Absolute Monos (auto) (0.0-1.3) x10^3/uL Absolute Nucleated RBC (0.00-0.01) x10^3u/L Lymphocytes % (24.0-44.0) % Monocytes % (0.0-12.0) % Eosinophils % (0.00-5.0) % Basophils % (0.0-0.4) % Absolute Granulocytes (1.4-6.9) x10^3/uL Basophils # (0-0.4) x10^3/uL Sodium (137-145) mmol/L Potassium (3.5-5.1) mmol/L Chloride (98-107) mmol/L Carbon Dioxide (22-30) mmol/L Anion Gap (5-15) MEQ/L BUN (9-20) mg/dL Creatinine (0.66-1.25) mg/dL Estimated GFR ML/MIN Glucose (74-106) mg/dL Calcium (8.4-10.2) mg/dL Total Bilirubin (0.2-1.3) mg/dL AST (17-59) U/L ALT (0-50) U/L Alkaline Phosphatase (38-126) U/L Serum Total Protein (6.3-8.2) g/dL Albumin (3.5-5.0) g/dL Urine Color (Yellow) Urine Appearance (Clear) Urine pH (4.6-8.0) Ur Specific [place] (1.005-1.030) Urine Protein (Negative) Urine Glucose (UA) (Negative) mg/dL Urine Ketones (Negative) Urine Blood (Negative) Urine Nitrite (Negative) Urine Bilirubin (Negative) Urine Urobilinogen (0.2) mg/dL Ur Leukocyte Esterase (Negative) U Hyaline Cast (Auto) (0-2) /LPF Urine Microscopic RBC (0-5) /HPF Urine Microscopic WBC (0-5) /HPF Ur Epithelial Cells (None Seen) /HPF Urine Bacteria (None Seen) /HPF Urine Culture Reflexed (NO) Salicylates (2-20) mg/dL Urine Opiates Level NEGATIVE (NEGATIVE) Ur Methadone NEGATIVE (NEGATIVE) Acetaminophen (10-30) ug/ml Urine Barbiturates NEGATIVE (NEGATIVE) Ur Phencyclidine (PCP) NEGATIVE (NEGATIVE) Urine Amphetamine NEGATIVE (NEGATIVE) U Benzodiazepine Level NEGATIVE (NEGATIVE) Urine Cocaine NEGATIVE (NEGATIVE) Urine Marijuana (THC) NEGATIVE (NEGATIVE) Ethyl Alcohol 180 H 15 H (0-10) mg/dL Influenza Type A Ag (NEGATIVE) Influenza Type B Ag (NEGATIVE) RSV (PCR) (NEGATIVE) SARS-CoV-2 (PCR) (NEGATIVE) 03/29/23 Range/Units Unknown WBC (4.0-10.5) x10^3/uL RBC (4.1-5.6) x10^6/uL Hgb (12.5-18.0) g/dL Hct (42-50) % MCV (78-100) fL MCH (26-32) pg MCHC (32-36) g/dL RDW (11.5-14.0) % Plt Count (150-450) x10^3/uL MPV (7.5-11.0) fL Gran % (36.0-66.0) % Immature Gran % (Auto) (0.00-0.4) % Nucleat RBC Rel Count (0.00-0.1) % Eos # (Auto) (0-0.5) x10^3/uL Immature Gran # (Auto) (0.00-0.03) x10^3u/L Absolute Lymphs (auto) (1.0-4.6) x10^3/uL Absolute Monos (auto) (0.0-1.3) x10^3/uL Absolute Nucleated RBC (0.00-0.01) x10^3u/L Lymphocytes % (24.0-44.0) % Monocytes % (0.0-12.0) % Eosinophils % (0.00-5.0) % Basophils % (0.0-0.4) % Absolute Granulocytes (1.4-6.9) x10^3/uL Basophils # (0-0.4) x10^3/uL Sodium (137-145) mmol/L Potassium (3.5-5.1) mmol/L Chloride (98-107) mmol/L Carbon Dioxide (22-30) mmol/L Anion Gap (5-15) MEQ/L BUN (9-20) mg/dL Creatinine (0.66-1.25) mg/dL Estimated GFR ML/MIN Glucose (74-106) mg/dL Calcium (8.4-10.2) mg/dL Total Bilirubin (0.2-1.3) mg/dL AST (17-59) U/L ALT (0-50) U/L Alkaline Phosphatase (38-126) U/L Serum Total Protein (6.3-8.2) g/dL Albumin (3.5-5.0) g/dL Urine Color (Yellow) Urine Appearance (Clear) Urine pH (4.6-8.0) Ur Specific [place] (1.005-1.030) Urine Protein (Negative) Urine Glucose (UA) (Negative) mg/dL Urine Ketones (Negative) Urine Blood (Negative) Urine Nitrite (Negative) Urine Bilirubin (Negative) Urine Urobilinogen (0.2) mg/dL Ur Leukocyte Esterase (Negative) U Hyaline Cast (Auto) (0-2) /LPF Urine Microscopic RBC (0-5) /HPF Urine Microscopic WBC (0-5) /HPF Ur Epithelial Cells (None Seen) /HPF Urine Bacteria (None Seen) /HPF Urine Culture Reflexed (NO) Salicylates (2-20) mg/dL Urine Opiates Level (NEGATIVE) Ur Methadone (NEGATIVE) Acetaminophen (10-30) ug/ml Urine Barbiturates (NEGATIVE) Ur Phencyclidine (PCP) (NEGATIVE) Urine Amphetamine (NEGATIVE) U Benzodiazepine Level (NEGATIVE) Urine Cocaine (NEGATIVE) Urine Marijuana (THC) (NEGATIVE) Ethyl Alcohol (0-10) mg/dL Influenza Type A Ag NEGATIVE (NEGATIVE) Influenza Type B Ag NEGATIVE (NEGATIVE) RSV (PCR) NEGATIVE (NEGATIVE) SARS-CoV-2 (PCR) NEGATIVE (NEGATIVE) Assessment/Plan (1) Suicidal ideation Current Visit: Yes Status: Acute Assessment & Plan: - consult -sitter -safe tray Code(s): R45.851 - SUICIDAL IDEATIONS (2) Depression Current Visit: Yes Status: Acute Assessment & Plan: -see above, possible IP transfer Code(s): F32.A - DEPRESSION, UNSPECIFIED (3) Anxiety Current Visit: Yes Status: Acute Assessment & Plan: -see above Code(s): F41.9 - ANXIETY DISORDER, UNSPECIFIED (4) Alcohol intoxication Current Visit: Yes Status: Acute Qualifiers: Complication of substance-induced condition: uncomplicated Qualified Code(s): F10.920 - Alcohol use, unspecified with intoxication, uncomplicated Assessment & Plan: -alcohol level 180<234, will start IVF -No need for CIWA today due to intoxication, will start tomorrow
[2023-03-30 06:03] LABS: Absolute Neutrophil Ct (ANC) 4.77 x10^3/uL (1.4-6.9); BASOPHIL % 0.4 % (0.0-0.4); Basophil (Absolute #) 0.03 x10^3/uL (0-0.4); Eosinophil % 3.3 % (0.00-5.0); Eosinophil (Absolute #) 0.27 x10^3/uL (0-0.5); Hemoglobin 14.7 g/dL (12.5-18.0); IMMATURE GRAN # 0.02 x10^3u/L (0.00-0.03); IMMATURE GRAN % 0.2 % (0.00-0.4); Lymphocyte (Absolute #) 2.14 x10^3/uL (1.0-4.6); Lymphocytes % 26.6 % (24.0-44.0); Mean Cell Volume 88.4 fL (78-100); Mean Corpuscular Hemoglobin 28.9 pg (26-32); Mean Corpuscular Hgb Concent. 32.7 g/dL (32-36); Mean Platelet Volume 10.1 fL (7.5-11.0); Monocyte (Absolute #) 0.83 x10^3/uL (0.0-1.3); Monocytes % 10.3 % (0.0-12.0); Neutrophil % 59.2 % (36.0-66.0); Platelet Count 229 x10^3/uL (150-450); Red Blood Count 5.09 x10^6/uL (4.1-5.6); Red Cell Distribution Width 13.4 % (11.5-14.0); White Blood Count 8.1 x10^3/uL (4.0-10.5)
[2023-03-30 06:13] LABS: ALBUMIN 4.2 g/dL (3.5-5.0); ALKALINE PHOSPHATASE 52 U/L (38-126); ANION GAP 8.6 MEQ/L (5-15); BLOOD UREA NITROGEN 20 mg/dL (9-20); CHLORIDE 104 mmol/L (98-107); Calcium 8.6 mg/dL (8.4-10.2); Carbon Dioxide 28 mmol/L (22-30); EST GLOMERULAR FILTRATION RATE > 60.0 ML/MIN; ETHYL ALCOHOL < 10 mg/dL (0-10); Glucose 115 mg/dL (74-106); MAGNESIUM 1.9 mg/dL (1.6-2.3); Potassium 3.9 mmol/L (3.5-5.1); SGOT/AST 27 U/L (17-59); SGPT/ALT 31 U/L (0-50); SODIUM 137 mmol/L (137-145); Total Protein 6.6 g/dL (6.3-8.2)
[2023-03-30 06:50] VITALS: BP 130/83; PULSE 77; RESP 16; TEMP 97.7; O2SAT 94
[2023-03-30] MEDS ORDERED: THERAGRAN MULTIVITAMIN PO SCH (10:00)
[2023-03-30] MEDS ORDERED: FOLATE 1 MG PO SCH (10:00)
[2023-03-30] MEDS ORDERED: VITAMIN B-1 100 MG PO SCH (10:00)
--- NOTE | 2023-03-30 10:38 | PCM.DS ---
Discharge Summary Date of Admission: 03/29/23 08:09 Date of Discharge: 03/30/23 Admitting Physician: MOUNIKA PALACIOS MD Consults: Consults on Case 03/29/23 11:50 Consult,Lizbeth [Psychiatric Consult] STAT Primary Care Provider: MOUNIKA GANNON NP Allergies Allergies No Known Drug Allergies Allergy (Verified 03/29/23 05:50) Hospital Summary - Hospital Course Hospital Course: is a 27 year old male with no pmhx presents to the hospital for suicidal ideation. Patient is intoxicated. Endorses every day thoughts of suicide. States he thinks about it all day long. Reports that his triggers for these thoughts are that "I just don't like myself and I want to blow my brains out." Patient tearful during interview. He states he has had many plans to end his life but he does not want to hurt the people who him. He does have access to a gun at home, states this is the method he would use, and leave a note. When asked about previous attempts he mentions that he tried to overdose on pills but it did not work. He states that he feels depressed and anxious but has never sought help or treatment and would like to at this time. He does consume about half of a fifth of crown daily which started several weeks ago, which he uses to help him sleep. No homicidal ideations, no auditory or visual hallucinations. He denies illicit drug use. Denies fever,cough, sob, cp, abdominal pain, MUÑOZ, di zziness, N/V/D. Tele-psych recommending IP stay at [facility] for which patient is agreeable. He has been accepted for transfer. Discharge Note New Diagnosis: Suicidal ideation Latest Assessment & Plan (1) Suicidal ideation Current Visit: Yes Status: Acute Assessment & Plan: - consult -sitter -safe tray Code(s): R45.851 - SUICIDAL IDEATIONS (2) Depression Current Visit: Yes Status: Acute Assessment & Plan: -see above, possible IP transfer Code(s): F32.A - DEPRESSION, UNSPECIFIED (3) Anxiety Current Visit: Yes Status: Acute Assessment & Plan: -see above Code(s): F41.9 - ANXIETY DISORDER, UNSPECIFIED (4) Alcohol intoxication Current Visit: Yes Status: Acute Qualifiers: Complication of substance-induced condition: uncomplicated Qualified Code(s): F10.920 - Alcohol use, unspecified with intoxication, uncomplicated Assessment & Plan: -alcohol level 180<234, will start IVF -No need for CIWA today due to intoxication, will start tomorrow I spent 35 minutes [id number] with the patient on the day of discharge performing discharge exam, discussing hospital stay and discharge instructions with patient and caregivers, preparation of discharge records, prescriptions & referral forms and addressing any questions/concerns the patient had as documented above. - Vitals & Intake/Output Vital Signs: Vital Signs Temperature 97.7 F 03/30/23 06:49 Pulse Rate 77 03/30/23 06:49 Respiratory Rate 16 03/30/23 08:00 Blood Pressure 130/83 03/30/23 06:49 O2 Sat by Pulse Oximetry 94 L 03/30/23 06:49 Intake & Output: Intake & Output 03/27/23 03/28/23 03/29/23 03/30/23 11:59 11:59 11:59 11:59 Intake Total 60 480 Balance 60 480 Weight 83.9 kg 83.9 kg - Lab Result Diagrams: 03/30/23 05:32 03/30/23 05:32 Lab Results-Last 24 Hrs: Lab Results-Last 24 Hours 03/29/23 03/29/23 03/30/23 Range/Units 10:07 16:40 05:32 WBC (4.0-10.5) x10^3/uL RBC (4.1-5.6) x10^6/uL Hgb (12.5-18.0) g/dL Hct (42-50) % MCV (78-100) fL MCH (26-32) pg MCHC (32-36) g/dL RDW (11.5-14.0) % Plt Count (150-450) x10^3/uL MPV (7.5-11.0) fL Gran % (36.0-66.0) % Immature Gran % (Auto) (0.00-0.4) % Nucleat RBC Rel Count (0.00-0.1) % Eos # (Auto) (0-0.5) x10^3/uL Immature Gran # (Auto) (0.00-0.03) x10^3u/L Absolute Lymphs (auto) (1.0-4.6) x10^3/uL Absolute Monos (auto) (0.0-1.3) x10^3/uL Absolute Nucleated RBC (0.00-0.01) x10^3u/L Lymphocytes % (24.0-44.0) % Monocytes % (0.0-12.0) % Eosinophils % (0.00-5.0) % Basophils % (0.0-0.4) % Absolute Granulocytes (1.4-6.9) x10^3/uL Basophils # (0-0.4) x10^3/uL Sodium 137 D (137-145) mmol/L Potassium 3.9 (3.5-5.1) mmol/L Chloride 104 (98-107) mmol/L Carbon Dioxide 28 (22-30) mmol/L Anion Gap 8.6 (5-15) MEQ/L BUN 20 (9-20) mg/dL Creatinine 0.80 (0.66-1.25) mg/dL Estimated GFR > 60.0 ML/MIN Glucose 115 H (74-106) mg/dL Calcium 8.6 (8.4-10.2) mg/dL Magnesium 1.9 (1.6-2.3) mg/dL Total Bilirubin 0.60 (0.2-1.3) mg/dL AST 27 (17-59) U/L ALT 31 (0-50) U/L Alkaline Phosphatase 52 (38-126) U/L Serum Total Protein 6.6 (6.3-8.2) g/dL Albumin 4.2 (3.5-5.0) g/dL Ethyl Alcohol 180 H 15 H < 10 (0-10) mg/dL 03/30/23 Range/Units 05:32 WBC 8.1 (4.0-10.5) x10^3/uL RBC 5.09 (4.1-5.6) x10^6/uL Hgb 14.7 (12.5-18.0) g/dL Hct 45.0 (42-50) % MCV 88.4 (78-100) fL MCH 28.9 (26-32) pg MCHC 32.7 (32-36) g/dL RDW 13.4 (11.5-14.0) % Plt Count 229 (150-450) x10^3/uL MPV 10.1 (7.5-11.0) fL Gran % 59.2 (36.0-66.0) % Immature Gran % (Auto) 0.2 (0.00-0.4) % Nucleat RBC Rel Count 0.0 (0.00-0.1) % Eos # (Auto) 0.27 (0-0.5) x10^3/uL Immature Gran # (Auto) 0.02 (0.00-0.03) x10^3u/L Absolute Lymphs (auto) 2.14 (1.0-4.6) x10^3/uL Absolute Monos (auto) 0.83 (0.0-1.3) x10^3/uL Absolute Nucleated RBC 0.00 (0.00-0.01) x10^3u/L Lymphocytes % 26.6 (24.0-44.0) % Monocytes % 10.3 (0.0-12.0) % Eosinophils % 3.3 (0.00-5.0) % Basophils % 0.4 (0.0-0.4) % Absolute Granulocytes 4.77 (1.4-6.9) x10^3/uL Basophils # 0.03 (0-0.4) x10^3/uL Sodium (137-145) mmol/L Potassium (3.5-5.1) mmol/L Chloride (98-107) mmol/L Carbon Dioxide (22-30) mmol/L Anion Gap (5-15) MEQ/L BUN (9-20) mg/dL Creatinine (0.66-1.25) mg/dL Estimated GFR ML/MIN Glucose (74-106) mg/dL Calcium (8.4-10.2) mg/dL Magnesium (1.6-2.3) mg/dL Total Bilirubin (0.2-1.3) mg/dL AST (17-59) U/L ALT (0-50) U/L Alkaline Phosphatase (38-126) U/L Serum Total Protein (6.3-8.2) g/dL Albumin (3.5-5.0) g/dL Ethyl Alcohol (0-10) mg/dL Discharge Exam General Appearance: no apparent distress Neurologic Exam: alert, oriented x 3, cooperative, depressed mood/affect Eye Exam: PERRL Ears, Nose, Throat Exam: normal ENT inspection Neck Exam: normal inspection Respiratory Exam: normal breath sounds, lungs clear Cardiovascular Exam: regular rate/rhythm, normal heart sounds Gastrointestinal/Abdomen Exam: soft, normal bowel sounds Male Genitalia Exam: deferred Rectal Exam: deferred Back Exam: normal inspection Extremity Exam: normal inspection Skin Exam: normal color Final Diagnosis/Problem List - Final Discharge Diagnosis/Problem (1) Suicidal ideation Current Visit: Yes Status: Acute Code(s): R45.851 - SUICIDAL IDEATIONS (2) Depression Current Visit: Yes Status: Acute Code(s): F32.A - DEPRESSION, UNSPECIFIED (3) Anxiety Current Visit: Yes Status: Acute Code(s): F41.9 - ANXIETY DISORDER, UNSPECIFIED (4) Alcohol intoxication Current Visit: Yes Status: Acute - Discharge Disposition: [facility] Condition: Stable Prescriptions: Continue No Home Meds [No Home Meds] 1 naida UD Forms: Ambulance Transport Record, Transfer Record Inter[facility]Agency
== END 2023-03-30 10:44 ==
LOC: ED 05:26 → MED SURG 08:09
PROVIDERS: ADMIT Internal Medicine; ATTEND Internal Medicine
DX: R45.851 Suicidal ideations (principal); F32.A Depression, unspecified; F41.9 Anxiety disorder, unspecified; F10.929 Alcohol use, unspecified with intoxication, unspecified; Z20.828 Contact with and (suspected) exposure to other viral communicable diseases
CPT/HCPCS: 0241U; 36415; 80053; 80143; 80179; 80307; 81001; 82077; 83735; 85025; 93005; 99284; 99291; 90791; G0378; Q3014

== ENCOUNTER 2023-06-17 05:55 | Emergency (ER) | payer OTHER ==
[2023-06-17] MEDS ORDERED: MOTRIN 600 MG PO ONE (06:32)
[2023-06-17] MEDS ORDERED: MOTRIN 600 MG ONE (06:37)
[2023-06-17 06:44] VITALS: BP 135/71; PULSE 91; RESP 16; TEMP 100.7; O2SAT 96
--- NOTE | 2023-06-17 06:52 | ERPHSYRPT ---
- History of Present Illness Source: patient Exam Limitations: no limitations Patient Subjective Stated Complaint: pt states that he has had a fever on and off since sometime on Friday but is unable to tell me what time or part of day it started or what any of his temps have been except at 0600 just prior to coming to ED this morning it was 100.6. states he took 1000mg po tylenol at approx 0200. reports since Friday has also had mild nonradiating achy pain to bilat lower back that is a little worse than his normal back pain but states he thinks it is because he has been "laying around since Friday". reports during this time frame he has also had a cough (with yellow sputum), sore throat, and runny nose. Triage Nursing Assessment: pt ambulated into room 6 independently with slow steady gait. pt is alert and oriented times three with flat affect, able to move all extremities, speaking in 2-3 word phrases, and with resp even and unlabored. skin pink, warm, dry, and intact. denies n/v diarrhea, MUÑOZ, change in appetite, cp, abdominal pain, difficulty with urination or bowel elimination, sob, lightheadedness, dizziness, difficulty breathing, or other ill feelings. Timing/Duration: day(s) (1.5 days), worse Cough Quality/Degree: mild, productive cough, sputum (Yellowish sputum) Possible Cause: occasional episodes Modifying Factors: Improves With: nothing, coughing Associated Symptoms: fever, cough, muscle aches, nasal congestion, nasal drainage, sore throat, No chest pain/soreness, No headache, No shortness of breath Hx Tetanus, Diphtheria Vaccination/Date Given: Yes Hx Influenza Vaccination/Date Given: No Hx Pneumococcal Vaccination/Date Given: No Immunizations Up to Date: Yes <PRADEEP DUENAS - Last Filed: 06/17/23 06:47> <EFREN LOPEZ - Last Filed: 06/17/23 07:59> - History of Present Illness Time Seen by Provider: 06/17/23 06:35 Physician History: This is a 27-year-old white male patient who began having symptoms of fever, cough, sore throat runny nose with productive cough of yellowish sputum that began approximately a day and a half ago. He has been using Tylenol and last dose was 2 AM this morning. Despite the Tylenol, he arrives with a fever of 100.6 F. Patient has no known exposures to individuals with similar symptoms. Patient has known drug allergies and takes no medications chronically. Patient denies chest pain. Patient denies abdominal pain. Patient denies head neck pain. Patient denies nausea vomiting and diarrhea symptoms. (PRADEEP DUENAS) Allergies/Adverse Reactions: No Known Drug Allergies Allergy (Verified 06/17/23 06:28) Home Medications: No Home Meds [No Home Meds] 1 [facility] 10/08/15 [History] Travel Risk - International Travel Have you traveled outside of the country in past 3 weeks: No - Coronavirus Screening Are you exhibiting any of the following symptoms?: Yes Symptoms: Fever Close contact with a COVID-19 positive Pt in past 14-21 Days: No - Vaccine Status Have you recieved a Covid-19 vaccination: No <PRADEEP DUENAS - Last Filed: 06/17/23 06:47> - Review of Systems Constitutional: Fever Eyes: No Symptoms Ears, Nose, & Throat: Nose Congestion, Nose Discharge, Throat Pain Respiratory: Cough Cardiac: No Symptoms Abdominal/Gastrointestinal: No Symptoms Genitourinary Symptoms: No Symptoms Musculoskeletal: Arthralgias, Myalgias Skin: No Symptoms Neurological: No Symptoms Psychological: No Symptoms Endocrine: No Symptoms Hematologic/Lymphatic: No Symptoms Immunological/Allergic: No Symptoms All Other Systems: Reviewed and Negative <PRADEEP DUENAS - Last Filed: 06/17/23 06:47> - Past Medical History Pertinent Past Medical History: Yes Neurological History: No Pertinent History ENT History: No Pertinent History Cardiac History: No Pertinent History Respiratory History: No Pertinent History Endocrine Medical History: No Pertinent History Musculoskeletal History: No Pertinent History GI Medical History: No Pertinent History History: No Pertinent History Psycho-Social History: Bipolar, Depression Male Reproductive Disorders: No Pertinent History - Past Surgical History Past Surgical History: Yes Neuro Surgical History: No Pertinent History Cardiac: No Pertinent History Respiratory: No Pertinent History Gastrointestinal: No Pertinent History Genitourinary: No Pertinent History Musculoskeletal: Orthopedic Surgery Male Surgical History: No Pertinent History Other Surgical History: right hand surgery - Social History Smoking Status: Former smoker How long have you smoked: yrs Exposure to second hand smoke: No Drug Use: none Patient Lives Alone: No <PRADEEP DUENAS Jose JuanDamian - Last Filed: 06/17/23 06:47> - Physical Exam General Appearance: no apparent distress, alert, anxiety Eye Exam: PERRL/EOMI, eyes nml inspection Ears, Nose, Throat Exam: moist mucous membranes, pharyngeal erythema Neck Exam: normal inspection, non-tender, supple, full range of motion Respiratory Exam: normal breath sounds, lungs clear, airway intact, No chest tenderness, No respiratory distress Cardiovascular Exam: tachycardia Gastrointestinal/Abdomen Exam: soft, normal bowel sounds, No tenderness Rectal Exam: not done Back Exam: normal inspection, normal range of motion, No CVA tenderness, No vertebral tenderness Extremity Exam: normal inspection, normal range of motion, pelvis stable Neurologic Exam: alert, oriented x 3, cooperative, 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 tested, normal mood/affect, nml cerebellar function, nml station & gait, sensation nml Skin Exam: normal color, warm, dry Lymphatic Exam: No adenopathy SpO2 Interpretation: normal SpO2: 96 O2 Delivery: Room Air <PRADEEP DUENAS - Last Filed: 06/17/23 06:47> - Nursing Vital Signs Nursing Vital Signs: Initial Vital Signs Temperature 100.7 F 06/17/23 06:28 Pulse Rate 110 H 06/17/23 06:28 Respiratory Rate 18 06/17/23 06:28 Blood Pressure 131/76 06/17/23 06:28 O2 Sat by Pulse Oximetry 96 06/17/23 06:28 Pain Scale Pain Intensity 3 - Course Nursing assessment & vital signs reviewed: Yes <PRADEEP DUENAS - Last Filed: 06/17/23 06:47> - Radiology Exams Chest X-ray Interpretation: Interpreted by me (No acute findings) <EFREN LOPEZ - Last Filed: 06/17/23 07:59> Ordered Tests: Active Orders 24 hr Category Date Time Status CHEST 1 VIEW (PORTABLE) Stat Exams 06/17/23 06:33 Taken Medication Summary Discontinued Medications Generic Name Dose Route Start Last Admin Trade Name Freq PRN Reason Stop Dose Admin Ibuprofen 600 mg 06/17/23 06:32 06/17/23 06:39 Ibuprofen 600 Mg Tablet PO 06/17/23 06:33 600 mg STAT ONE Administration Ibuprofen Confirm 06/17/23 06:37 Ibuprofen 600 Mg Tablet Administered 06/17/23 06:38 Dose 600 mg .ROUTE .STK-MED ONE Lab/Rad Data: Laboratory Results 06/17/23 Range/Units 06:45 Influenza Type A Ag POSITIVE (NEGATIVE) Influenza Type B Ag NEGATIVE (NEGATIVE) RSV (PCR) NEGATIVE (NEGATIVE) SARS-CoV-2 (PCR) NEGATIVE (NEGATIVE) Group A Strep Antibody NOT DETECTED (NEGATIVE) - Progress Air Movement: good <PRADEEP DUENAS - Last Filed: 06/17/23 06:47> - Progress Progress: improved Blood Culture(s) Obtained: No Antibiotics given: No Counseled pt/family regarding: lab results, diagnosis, need for follow-up <EFREN LOPEZ - Last Filed: 06/17/23 07:59> - Progress Progress Note: 06/17/23 06:50 Patient's medical issue is 1 of low complexity. The level of complexity and the workup performed is based on review of the patient's past medical history, review of the patient's medication list, review of the patient's drug allergy list, history of present illness and physical findings on examination. The workup in this patient includes a chest x-ray, group A strep swab and viral swabs. Patient care is being transferred to Dr. Efren Lopez at shift change. He is advised of the workup studies pending and he will follow-up on them and make final disposition. (PRADEEP DUENAS) Patient endorsed to Dr. Lopez at [address] Lopez advised to follow-up on pending viral studies including a rapid strep study. Patient tested positive for influenza A. Vitals otherwise stable. No active fever. Patient has no other complaints at this time. Patient advised on the importance of hydration rest and nutrition. Patient is aware of the communicability of this viral infection. Patient received ibuprofen upon arrival. He agrees to follow-up with his primary care doctor within 48 hours for reevaluation. He voices no other complaints or concerns at this time. No acute findings observed on chest x-ray. Formal read pending We discussed the risks and benefits of prescribing Tamiflu for influenza A however patient declined. Patient states "I will just tough it out" Portions of this note were created with voice recognition technology. There may be grammatical, spelling, punctuation or sound alike errors 06/17/23 07:50 (EFREN LOPEZ) - Departure Departure Disposition: Home Critical Care Time: No <PRADEEP DUENAS Jose JuanDamian - Last Filed: 06/17/23 06:47> <EFREN LOPEZ - Last Filed: 06/17/23 07:59> - Departure Clinical Impression: Fever, Cough, Influenza A Condition: Stable Referrals: MOUNIKA GANNON, [employer] [Primary Care Provider] - Follow up/PCP as directed Additional Instructions: Discharge/Care Plan CLEM SOUSA was seen on 06/17/23 in the Emergency Room. The patient was counseled regarding Diagnosis,Lab results, Imaging studies, need for follow up and when to return to the Emergency Room. Prescriptions given: Discharge Note I have spoken with the patient and/or caregivers. I have explained the patient's condition, diagnosis and treatment plan based on the information available to me at this time. I have answered the patient's and/or caregiver's questions and addressed any concerns. The patient and/or caregivers have as good understanding of the patient's diagnosis, condition and treatment plan as can be expected at this point. The vital signs have been stable. The patient's condition is stable and appropriate for discharge from the emergency department. The patient will pursue further outpatient evaluation with the primary care physician or other designated or consulting physician as outlined in the discharge instructions. The patient and/or caregivers are agreeable to this plan of care and follow-up instructions have been explained in detail. The patient and/or caregivers have received these instruction. The patient/and or caregivers are aware that any significant change in condition or worsening of symptoms should prompt an immediate return to this or the closest emergency department or call 911.
[2023-06-17 07:23] LABS: Group A Strep NOT DETECTED (NEGATIVE)
[2023-06-17 07:33] LABS: INFLUENZA B NEGATIVE (NEGATIVE); RESPIRATORY SYNCTIAL VIRUS NEGATIVE (NEGATIVE); SARS-CoV-2 Xpert Express NEGATIVE (NEGATIVE)
[2023-06-17 07:34] LABS: INFLUENZA A POSITIVE (NEGATIVE)
--- NOTE | 2023-06-17 08:59 | XRAY ---
Indication: Fever and cough. Comparison: March 08, 2021 Portable apical lordotic again demonstrates normal heart, lungs, and bony thorax.
== END 2023-06-17 08:11 | disposition home or self-care (01) ==
LOC: ED 05:55
DX: J10.1 Influenza due to other identified influenza virus with other respiratory manifestations (principal); R50.9 Fever, unspecified; R05.1 Acute cough; Z28.310 Unvaccinated for COVID-19
CPT/HCPCS: 0241U; 71045; 87651; 99283; A9270-GY